=== PATIENT | male | born 1995 | race Caucasian/White ===

== ENCOUNTER 2018-09-23 15:49 | Emergency (ER) | payer SELFPAY ==
[~2018-09-23] VITALS: Ht 180.3 cm; Wt 111.6 kg
[2018-09-23 16:02] VITALS: BP 157/97
[2018-09-23] MEDS ORDERED: ACETAMINOPHEN 500 MG TABLET PO ONE (16:30)
[2018-09-23] MEDS ORDERED: DEXAMETHASONE 4 MG TABLET PO ONE (16:30)
[2018-09-23] MEDS ORDERED: ACETAMINOPHEN 500 MG TABLET ONE ×2 (16:47→17:02)
[2018-09-23] MEDS ORDERED: DEXAMETHASONE 4 MG TABLET ONE ×2 (16:47→17:01)
== END 2018-09-23 17:40 | disposition home or self-care (01) ==
LOC: ED 17:34
DX: J02.0 Streptococcal pharyngitis (principal)
CPT/HCPCS: 87880; 99283

== ENCOUNTER 2018-12-03 21:45 | Emergency (ER) | payer BC ==
[~2018-12-03] VITALS: Ht 180.3 cm; Wt 115.3 kg
[2018-12-03 21:48] VITALS: BP 140/78
[2018-12-03] MEDS ORDERED: METHOCARBAMOL 750 MG TABLET ONE (22:15)
[2018-12-03] MEDS ORDERED: KETOROLAC 30 MG/1 ML ONE (22:15)
[2018-12-03] MEDS ORDERED: KETOROLAC 30 MG/1 ML IM ONE (22:30)
[2018-12-03] MEDS ORDERED: METHOCARBAMOL 750 MG TABLET PO ONE (22:30)
== END 2018-12-03 22:48 | disposition home or self-care (01) ==
LOC: ED 22:05
DX: M54.6 Pain in thoracic spine (principal); F17.200 Nicotine dependence, unspecified, uncomplicated
CPT/HCPCS: 96372; 99283; J1885

== ENCOUNTER 2018-12-08 14:49 | Emergency (ER) | payer BC ==
[~2018-12-08] VITALS: Ht 180.3 cm; Wt 111.3 kg
[2018-12-08 14:56] VITALS: BP 133/80
== END 2018-12-08 16:21 | disposition home or self-care (01) ==
LOC: ED 16:15
DX: S43.421A Sprain of right rotator cuff capsule, initial encounter (principal); W19.XXXA Unspecified fall, initial encounter; Y93.89 Activity, other specified; Y92.009 Unspecified place in unspecified non-institutional (private) residence as the place of occurrence of the external cause; Y99.8 Other external cause status
CPT/HCPCS: 99283

== ENCOUNTER 2019-04-24 18:04 | Emergency (ER) | payer BC ==
[~2019-04-24] VITALS: Ht 180.3 cm; Wt 102.3 kg
--- NOTE | 2019-04-24 18:54 | NUR ---
A&OX4, RESP EVEN & UNLABORED, SPEECH CLEAR, SITTING IN WC IN ROOM. C/O LOW BACK PAIN, STARTED TODAY WHILE PUSHING A RECLINER CHAIR OUT A DOOR. TOOK PINK PILL ABOUT 1700 - LEFT OVER MED FROM SHOULDER INJURY. DENIES NUMBNESS, TINGLING TO LE'S. EXPERIENCING MUSCLE SPASMS, WORSENS W/ MOVEMENT.
[2019-04-24] MEDS ORDERED: KETOROLAC 30 MG/1 ML IM ONE (19:00)
[2019-04-24] MEDS ORDERED: DIAZEPAM 5 MG TABLET PO ONE (19:00)
[2019-04-24] MEDS ORDERED: HYDROcodone/APAP 5/325 TABLET PO ONE (19:00)
[2019-04-24] MEDS ORDERED: DIAZEPAM 5 MG TABLET ONE (19:10)
[2019-04-24] MEDS ORDERED: HYDROcodone/APAP 5/325 TABLET ONE (19:11)
[2019-04-24] MEDS ORDERED: KETOROLAC 60 MG/2 ML ONE (19:11)
[2019-04-24 19:28] VITALS: BP 123/74
== END 2019-04-24 20:24 | disposition home or self-care (01) ==
LOC: ED 18:17
DX: S39.012A Strain of muscle, fascia and tendon of lower back, initial encounter (principal); Z87.891 Personal history of nicotine dependence; X58.XXXA Exposure to other specified factors, initial encounter; Y93.89 Activity, other specified; Y92.89 Other specified places as the place of occurrence of the external cause; Y99.8 Other external cause status
CPT/HCPCS: 96372; 99283; J1885

== ENCOUNTER 2020-12-19 01:55 | Inpatient (IN) | payer BC, OTHER ==
[~2020-12-19] VITALS: Ht 180.3 cm; Wt 119.6 kg
[2020-12-19] MEDS ORDERED: ACETAMINOPHEN 325 MG TABLET PO ONE (02:30)
[2020-12-19] MEDS ORDERED: ACETAMINOPHEN 325 MG TABLET ONE (02:38)
[2020-12-19 03:23] LABS: ALBUMIN 3.5 g/dL (3.4-5.0); ANION GAP 11 mmol/L (5-15); CHLORIDE 98 mmol/L (98-107)
[2020-12-19 03:28] LABS: ALANINE AMINOTRANSFERASE 158 U/L (12-78); ALKALINE PHOSPHATASE 61 U/L (45-117); BILIRUBIN,TOTAL 0.9 mg/dL (0.2-1.0); CREATININE 1.06 mg/dL (0.7-1.3); TOTAL PROTEIN 8.5 g/dL (6.4-8.2); TROPONIN I < 0.015 ng/mL (0.000-0.045)
[2020-12-19 03:29] LABS: BASOPHILS % (AUTO) 0 % (0-1); EOSINOPHILS % (AUTO) 0 % (1-7); LYMPHOCYTES % (AUTO) 15 % (22-44); MEAN CORPUSCULAR HEMOGLOBIN 28.3 pg (27.5-34.5); MEAN CORPUSCULAR HGB CONC 34.8 g/dL (33.2-36.2); MEAN PLATELET VOLUME 7.6 fL (7.4-10.4); MONOCYTES % (AUTO) 9 % (2-9); NEUTROPHILS % (AUTO) 75 % (42-75); PLATELET COUNT 330 x10^3/uL (130-400); RED BLOOD COUNT 5.13 x10^6/uL (4.38-5.82); RED CELL DISTRIBUTION WIDTH 13.3 % (9.4-14.8)
[2020-12-19] MEDS ORDERED: POLYETHYLENE GLYCOL 17 GM PACKET PO PRN (04:30)
[2020-12-19] MEDS ORDERED: MELATONIN 5 MG TABLET PO PRN (04:30)
[2020-12-19] MEDS ORDERED: KETOROLAC 30 MG/1 ML IV PRN (04:30)
[2020-12-19] MEDS ORDERED: PHARMACY MAY ADJ FOR RENAL FX MC PRN (04:30)
[2020-12-19] MEDS ORDERED: ONDANSETRON 2MG/ML, 2ML IVPush PRN (04:30)
[2020-12-19] MEDS ORDERED: LABETALOL 5MG/ML, 20ML IVPush PRN (04:30)
[2020-12-19] MEDS: ACETAMINOPHEN 500 MG TABLET PO SCH ×5 (04:30→20:42)
--- NOTE | 2020-12-19 05:20 | NUR ---
PATIENT AMBULATORY TO RESTROOM.
[2020-12-19] MEDS ORDERED: ALBUTEROL-IPRATROPIUM MDI INH INH SCH (06:00)
--- NOTE | 2020-12-19 06:02 | NUR ---
PATIENT RESTING WITH EYES CLOSED. NAD. CALL DIETZ IN REACH. WILL CONTINUE TO MONITOR.
--- NOTE | 2020-12-19 06:56 | NUR ---
REPORT GIVEN TO ARCHIE KAUR
[2020-12-19] MEDS ORDERED: ENOXAPARIN 40 MG/0.4 ML ONE (06:58)
[2020-12-19] MEDS: ENOXAPARIN 40 MG/0.4 ML SQ SCH (07:00)
--- NOTE | 2020-12-19 08:07 | NUR ---
PT PLACED ON CARDIAC MONITORS. PT ROOM AIR TEST 88%. PT PLACED BACK ON 2L NC. PT TACHYPNEIC, OTHER VS WDL. AWAITING ADMIT.
--- NOTE | 2020-12-19 08:16 | NUR ---
REPORT TO DEANDRA ALMANZA. AWAITING PIV PLACEMENT PRIOR TO TRANSFER.
[2020-12-19] MEDS: FLUTICASONE/VILANTEROL 100-25MCG/INH INH SCH (09:00)
[2020-12-19 10:52] VITALS: BP 127/83
[2020-12-19] MEDS: ASCORBIC ACID 500 MG TABLET PO SCH ×2 (12:04→20:42)
[2020-12-19] MEDS: ZINC SULFATE 220 MG CAPSULE PO SCH (12:04)
[2020-12-19] MEDS: FAMOTIDINE 20 MG TABLET PO SCH ×2 (12:05→20:42)
[2020-12-19] MEDS: DEXAMETHASONE 4 MG/ML, 1ML IVPush SCH (12:06)
[2020-12-19] MEDS ORDERED: ALBUTEROL HFA 90 MCG/SPRAY INH PRN (13:30)
[2020-12-19 16:36] VITALS: BP 116/76
[2020-12-19 20:06] VITALS: BP 108/63
[2020-12-19] MEDS: GUAIFENESIN/DM 200-20MG, 10ML UDC PO PRN (20:43)
[2020-12-20] MEDS: ACETAMINOPHEN 500 MG TABLET PO SCH ×6 (00:54→21:46)
[2020-12-20 00:57] VITALS: BP 114/72
[2020-12-20 06:59] LABS: BASOPHILS % (AUTO) 0 % (0-1); EOSINOPHILS % (AUTO) 0 % (1-7); LYMPHOCYTES % (AUTO) 18 % (22-44); MEAN CORPUSCULAR HEMOGLOBIN 28.5 pg (27.5-34.5); MEAN PLATELET VOLUME 6.8 fL (7.4-10.4); MONOCYTES % (AUTO) 8 % (2-9); NEUTROPHILS % (AUTO) 73 % (42-75); PLATELET COUNT 444 x10^3/uL (130-400); RED BLOOD COUNT 5.42 x10^6/uL (4.38-5.82)
[2020-12-20 07:04] LABS: ANION GAP 8 mmol/L (5-15); CALCIUM 9.5 mg/dL (8.5-10.1); CHLORIDE 98 mmol/L (98-107)
[2020-12-20 07:07] LABS: CREATININE 0.91 mg/dL (0.7-1.3)
[2020-12-20] MEDS: ENOXAPARIN 40 MG/0.4 ML SQ SCH (07:28)
[2020-12-20] MEDS: ZINC SULFATE 220 MG CAPSULE PO SCH (08:37)
[2020-12-20] MEDS: DEXAMETHASONE 4 MG/ML, 1ML IVPush SCH (08:37)
[2020-12-20] MEDS: ASCORBIC ACID 500 MG TABLET PO SCH ×2 (08:37→21:46)
[2020-12-20] MEDS: FAMOTIDINE 20 MG TABLET PO SCH ×2 (08:38→21:46)
[2020-12-20] MEDS: GUAIFENESIN/DM 200-20MG, 10ML UDC PO PRN ×2 (08:43→21:54)
[2020-12-20] MEDS: FLUTICASONE/VILANTEROL 100-25MCG/INH INH SCH (08:44)
[2020-12-20 08:48] VITALS: BP 105/67
[2020-12-20 12:20] VITALS: BP 115/76
[2020-12-20 19:40] VITALS: BP 119/74
[2020-12-21 00:32] VITALS: BP 117/76
[2020-12-21] MEDS: ACETAMINOPHEN 500 MG TABLET PO SCH ×6 (02:17→21:45)
[2020-12-21] MEDS: ENOXAPARIN 40 MG/0.4 ML SQ SCH (06:02)
[2020-12-21 06:42] LABS: CHLORIDE 96 mmol/L (98-107)
[2020-12-21 06:53] LABS: ALANINE AMINOTRANSFERASE 144 U/L (12-78); ALBUMIN 3.3 g/dL (3.4-5.0); ALKALINE PHOSPHATASE 63 U/L (45-117); ANION GAP 8 mmol/L (5-15); BILIRUBIN,TOTAL 0.8 mg/dL (0.2-1.0); CALCIUM 9.6 mg/dL (8.5-10.1); CREATININE 0.83 mg/dL (0.7-1.3); TOTAL PROTEIN 8.1 g/dL (6.4-8.2)
[2020-12-21 07:41] VITALS: BP 96/58
[2020-12-21] MEDS: FLUTICASONE/VILANTEROL 100-25MCG/INH INH SCH (09:00)
[2020-12-21] MEDS: FAMOTIDINE 20 MG TABLET PO SCH ×2 (09:03→21:45)
[2020-12-21] MEDS: DEXAMETHASONE 4 MG/ML, 1ML IVPush SCH (09:03)
[2020-12-21] MEDS: ASCORBIC ACID 500 MG TABLET PO SCH ×2 (09:03→21:45)
[2020-12-21] MEDS: ZINC SULFATE 220 MG CAPSULE PO SCH (09:03)
[2020-12-21] MEDS: GUAIFENESIN/DM 200-20MG, 10ML UDC PO PRN ×2 (09:13→21:45)
[2020-12-21 12:58] VITALS: BP 130/79
[2020-12-21 20:50] VITALS: BP 111/74
[2020-12-22 02:06] VITALS: BP 127/75
[2020-12-22] MEDS: ACETAMINOPHEN 500 MG TABLET PO SCH ×4 (02:06→14:23)
[2020-12-22] MEDS: ENOXAPARIN 40 MG/0.4 ML SQ SCH (06:21)
[2020-12-22] MEDS: ASCORBIC ACID 500 MG TABLET PO SCH (09:36)
[2020-12-22] MEDS: GUAIFENESIN/DM 200-20MG, 10ML UDC PO PRN (09:36)
[2020-12-22] MEDS: ZINC SULFATE 220 MG CAPSULE PO SCH (09:37)
[2020-12-22] MEDS: DEXAMETHASONE 4 MG/ML, 1ML IVPush SCH (09:37)
[2020-12-22] MEDS: FAMOTIDINE 20 MG TABLET PO SCH (09:37)
[2020-12-22] MEDS: FLUTICASONE/VILANTEROL 100-25MCG/INH INH SCH (09:40)
[2020-12-22 09:50] VITALS: BP 127/84
[2020-12-22] MEDS ORDERED: DEXA6TAB6 PO (12:49)
[2020-12-22] MEDS ORDERED: FLUT1AER INH (12:49)
[2020-12-22] MEDS ORDERED: ASCO500T9 PO (12:49)
[2020-12-22] MEDS ORDERED: ALBU18HF INH (12:49)
[2020-12-22] MEDS ORDERED: ZINC220C8 PO (12:49)
== END 2020-12-22 15:02 | disposition home or self-care (01) | DRG 177 ==
LOC: ED 05:32 → EDIP 06:14 → 4EST 09:25
PROVIDERS: ADMIT Internal Medicine; ATTEND Internal Medicine
DX: U07.1 COVID-19 (principal); J12.82 Pneumonia due to coronavirus disease 2019; J96.01 Acute respiratory failure with hypoxia; E87.1 Hypo-osmolality and hyponatremia; F19.10 Other psychoactive substance abuse, uncomplicated; E66.9 Obesity, unspecified; Z68.35 Body mass index [BMI] 35.0-35.9, adult; Z79.899 Other long term (current) drug therapy
CPT/HCPCS: 36415; 71045; 80048; 80053; 83605; 83735; 84100; 84145; 84484; 85025; 87040; 96374; G0378; J1100; J1650